=== PATIENT | female | born 1985 | race African-American/Black ===

== ENCOUNTER 2017-05-21 17:58 | Emergency (ER) | payer MEDICAID ==
[~2017-05-21] VITALS: Ht 175.3 cm; Wt 85.7 kg
[2017-05-21 18:13] VITALS: BP 152/94
== END 2017-05-21 23:00 | disposition left against medical advice (07) ==
LOC: ER 17:58
DX: R35.0 Frequency of micturition (principal); Z53.21 Procedure and treatment not carried out due to patient leaving prior to being seen by health care provider

== ENCOUNTER 2018-07-08 07:25 | Emergency (ER) | payer MEDICAID ==
[~2018-07-08] VITALS: Ht 170.2 cm; Wt 75.0 kg
[2018-07-08] MEDS ORDERED: KETOROLAC 60MG/2ML VIAL IM STA (09:14)
[2018-07-08] MEDS ORDERED: METOCLOPRAMIDE HCL 10MG/2ML VIAL IM ONE (09:15)
[2018-07-08 09:39] LABS: CLARITY URINE CLEAR (CLEAR); COLOR URINE YELLOW (YELLOW); KETONES URINE NEGATIVE (NEGATIVE); LEUKOCYTE ESTERASE URINE NEGATIVE (NEGATIVE); NITRITE URINE NEGATIVE (NEGATIVE); OCCULT BLOOD URINE 2+ (NEGATIVE); PH URINE 5.5 (4.5-8.0); PROTEIN URINE NEGATIVE (NEGATIVE); SPECIFIC GRAVITY URINE 1.024 (1.005-1.030); UROBILINOGEN URINE 0.2 E.U./dL (0.2-1.0)
[2018-07-08 10:10] VITALS: BP 156/107
== END 2018-07-08 11:16 | disposition home or self-care (01) ==
LOC: ER 07:25
DX: G44.009 Cluster headache syndrome, unspecified, not intractable (principal); I10 Essential (primary) hypertension; N39.0 Urinary tract infection, site not specified
CPT/HCPCS: 81003; 81025; 96372; 99284; J1885; J2765

== ENCOUNTER 2018-11-13 10:38 | Emergency (ER) | payer MEDICAID ==
[~2018-11-13] VITALS: Ht 175.3 cm; Wt 82.0 kg
[2018-11-13 15:35] VITALS: BP 160/81
== END 2018-11-13 15:48 | disposition home or self-care (01) ==
LOC: ER 10:47
DX: J01.90 Acute sinusitis, unspecified (principal); H92.09 Otalgia, unspecified ear; I10 Essential (primary) hypertension; Z98.890 Other specified postprocedural states
CPT/HCPCS: 99283

== ENCOUNTER 2019-07-21 07:25 | Emergency (ER) | payer MEDICAID ==
[~2019-07-21] VITALS: Ht 175.3 cm; Wt 75.0 kg
[2019-07-21] MEDS ORDERED: ONDANSETRON 4MG ODT PO STA (07:59)
[2019-07-21] MEDS ORDERED: ONDANSETRON HCL 4MG/2ML INJ IV STA (07:59)
[2019-07-21] MEDS ORDERED: IBUPROFEN 600MG TABLET PO STA (07:59)
[2019-07-21] MEDS ORDERED: ACETAMINOPHEN 325MG TABLET PO ONE (08:15)
[2019-07-21 08:48] LABS: BASOPHILS % 0.5 % (0.0-2.0); EOSINOPHILS % 2.2 % (0.0-5.0); HEMATOCRIT. 37.1 % (36.0-48.0); HEMOGLOBIN. 12.4 g/dL (12.0-16.0); LYMPHOCYTES % 23.1 % (20.0-50.0); MEAN CORPUSCULAR HEMOGLOBIN 29.7 pg (28.0-32.0); MEAN CORPUSCULAR VOLUME 89.1 fL (81.0-99.0); MEAN PLATELET VOLUME 8.5 fl (7.4-10.4); NEUTROPHILS % 69.2 % (40.0-76.0); PLATELET 271 x1000/uL (130-400); RED BLOOD CELL COUNT 4.17 mill/uL (4.2-5.4); RED CELL DISTRIBUTION WIDTH 13.7 % (11.6-14.6)
[2019-07-21 08:51] LABS: CHLORIDE 108 mEq/L (98-107)
[2019-07-21 08:52] LABS: INR 1.1
[2019-07-21 08:52] LABS: CLARITY URINE CLOUDY (CLEAR); COLOR URINE YELLOW (YELLOW); KETONES URINE NEGATIVE (NEGATIVE); LEUKOCYTE ESTERASE URINE 2+ (NEGATIVE); NITRITE URINE NEGATIVE (NEGATIVE); OCCULT BLOOD URINE TRACE (NEGATIVE); PH URINE 5.5 (4.5-8.0); PROTEIN URINE NEGATIVE (NEGATIVE); SPECIFIC GRAVITY URINE 1.023 (1.005-1.030); UROBILINOGEN URINE 0.2 E.U./dL (0.2-1.0)
[2019-07-21 10:01] VITALS: BP 135/92
== END 2019-07-21 10:10 | disposition home or self-care (01) ==
LOC: ER 07:42
DX: R51 Headache (principal); N39.0 Urinary tract infection, site not specified
CPT/HCPCS: 36415; 81003; 81025; 93005; 99284

== ENCOUNTER 2021-07-14 08:28 | Emergency (ER) | payer MEDICAID ==
[~2021-07-14] VITALS: Ht 175.3 cm; Wt 79.0 kg
[2021-07-14] MEDS ORDERED: ONDANSETRON HCL 4MG/2ML INJ IV STA (08:58)
[2021-07-14] MEDS ORDERED: KETOROLAC 30MG/ML VIAL IV STA (08:58)
[2021-07-14] MEDS ORDERED: SODIUM CHLORIDE 0.9% 1,000 ML IV ONE (09:00)
[2021-07-14 10:03] LABS: BASOPHILS % 0.5 % (0.0-2.0); EOSINOPHILS % 0.2 % (0.0-5.0); HEMATOCRIT. 42.1 % (36.0-48.0); HEMOGLOBIN. 14.2 g/dL (12.0-16.0); LYMPHOCYTES % 11.1 % (20.0-50.0); MEAN CORPUSCULAR HEMOGLOBIN 30.6 pg (28.0-32.0); MEAN CORPUSCULAR VOLUME 90.8 fL (81.0-99.0); MEAN PLATELET VOLUME 8.6 fl (7.4-10.4); MONOCYTES % 3.8 % (2.0-8.0); NEUTROPHILS % 84.4 % (40.0-76.0); PLATELET 225 x1000/uL (130-400); RED BLOOD CELL COUNT 4.64 mill/uL (4.2-5.4); RED CELL DISTRIBUTION WIDTH 13.4 % (11.6-14.6)
[2021-07-14 10:11] LABS: CHLORIDE 107 mEq/L (98-107)
[2021-07-14 10:16] LABS: HCG SCREEN NEGATIVE
[2021-07-14] MEDS ORDERED: ONDA4TAB5 PO (10:37)
[2021-07-14 11:20] VITALS: BP 142/89
== END 2021-07-14 11:23 | disposition home or self-care (01) ==
LOC: ER 08:28
DX: R11.2 Nausea with vomiting, unspecified (principal); I10 Essential (primary) hypertension; Z20.822 Contact with and (suspected) exposure to COVID-19; Z98.890 Other specified postprocedural states
CPT/HCPCS: 36415; 80053; 81025; 84703; 85025; 96361; 96374; 96375; 99284; C9803; J1885; J2405; J7030; U0003; U0005; Z7610

== ENCOUNTER 2021-10-12 04:58 | Emergency (ER) | payer MEDICAID ==
[~2021-10-12] VITALS: Ht 175.3 cm; Wt 79.0 kg
[~2021-10-12 04:58] MED LIST: ONDA4TAB5 PO
[2021-10-12 05:01] VITALS: BP 160/101
[2021-10-12] MEDS ORDERED: ACETAMINOPHEN 325MG TABLET PO ONE (05:15)
[2021-10-12] MEDS ORDERED: TOPUD PO (05:48)
== END 2021-10-12 06:19 | disposition home or self-care (01) ==
LOC: ER 04:58
DX: U07.1 COVID-19 (principal); I10 Essential (primary) hypertension; Z98.890 Other specified postprocedural states
CPT/HCPCS: 99283; C9803; U0003; U0005

== ENCOUNTER 2021-12-24 17:32 | Emergency (ER) | payer MEDICAID ==
[~2021-12-24] VITALS: Ht 175.3 cm; Wt 79.0 kg
[~2021-12-24 17:32] MED LIST changes: +TOPUD PO
[2021-12-24] MEDS ORDERED: MAGNESIUM/ALUMINUM HYDROXIDE/SIMETHICONE 30ML UDC PO STA (18:22)
[2021-12-24] MEDS ORDERED: VISCOUS LIDOCAINE 2% 15 ML UDC PO STA (18:22)
[2021-12-24] MEDS ORDERED: METOCLOPRAMIDE HCL 10MG/2ML VIAL IV STA (18:22)
[2021-12-24] MEDS ORDERED: SODIUM CHLORIDE 0.9% 1,000 ML IV ONE (18:30)
[2021-12-24 18:34] LABS: HEMATOCRIT. 39.9 % (36.0-48.0); HEMOGLOBIN. 13.7 g/dL (12.0-16.0); MEAN CORPUSCULAR HEMOGLOBIN 30.6 pg (28.0-32.0); MEAN CORPUSCULAR VOLUME 88.9 fL (81.0-99.0); MEAN PLATELET VOLUME 8.5 fl (7.4-10.4); PLATELET 216 x1000/uL (130-400); RED BLOOD CELL COUNT 4.49 mill/uL (4.2-5.4); RED CELL DISTRIBUTION WIDTH 13.6 % (11.6-14.6)
[2021-12-24 18:39] LABS: CHLORIDE 107 mEq/L (98-107)
[2021-12-24 18:49] LABS: B-HCG QUANTITATIVE < 1 mIU/mL (<3)
[2021-12-24 18:55] LABS: PLATELET ESTIMATE NORMAL
[2021-12-24] MEDS ORDERED: ASPIRIN 81MG TABLET PO ONE (19:30)
[2021-12-24 20:22] LABS: CLARITY URINE CLEAR (CLEAR); COLOR URINE YELLOW (YELLOW); KETONES URINE 4+ (NEGATIVE); LEUKOCYTE ESTERASE URINE NEGATIVE (NEGATIVE); NITRITE URINE NEGATIVE (NEGATIVE); OCCULT BLOOD URINE NEGATIVE (NEGATIVE); PH URINE 6.5 (4.5-8.0); PROTEIN URINE 1+ (NEGATIVE); SPECIFIC GRAVITY URINE 1.028 (1.005-1.030)
[2021-12-24 20:45] LABS: *AMPHETAMINES SCREEN URINE NEGATIVE (NEGATIVE); *BARBITURATES SCREEN URINE NEGATIVE (NEGATIVE); *BENZODIAZEPINES SCREEN URINE NEGATIVE (NEGATIVE); *COCAINE SCREEN URINE NEGATIVE (NEGATIVE); METHADONE URINE SCREEN NEGATIVE (NEGATIVE); OPIATES URINE SCREEN NEGATIVE (NEGATIVE)
[2021-12-24] MEDS ORDERED: ONDANSETRON HCL 4MG/2ML INJ IV NR (20:45)
[2021-12-24 20:47] LABS: PHENCYCLIDINE URINE SCREEN NEGATIVE (NEGATIVE)
[2021-12-24 20:49] LABS: CANNABINOID URINE SCREEN PRESUMTIVE POSITIVE (NEGATIVE)
[2021-12-24] MEDS ORDERED: POTASSIUM CHLORIDE 20MEQ/PACKET PO ONE ×2 (21:30)
[2021-12-24] MEDS ORDERED: MAGNESIUM 2 G PREMIX 50 ML IV ONE (21:30)
[2021-12-24 23:47] VITALS: BP 127/71
== END 2021-12-24 23:49 | disposition home or self-care (01) ==
LOC: ER 17:32
DX: R10.13 Epigastric pain (principal); R11.2 Nausea with vomiting, unspecified; E87.6 Hypokalemia; E86.9 Volume depletion, unspecified; I10 Essential (primary) hypertension; Z98.890 Other specified postprocedural states
CPT/HCPCS: 36415; 76700; 80053; 80305; 81003; 83690; 84484; 84702; 85025; 93005; 96361; 96374; 96375; 99285; J2405; J2765; J3475; J7030